=== PATIENT | female | born 1990 | race Caucasian/White ===

== ENCOUNTER → 2020-12-20 06:58 | Outpatient (CLI) | payer BC, SELFPAY ==
[2020-12-20 23:26] LABS: SARS-CoV-2 RNA PCR Negative
== END ==
PROVIDERS: PCP Nurse Practitioner Family; Visit Provider Nurse Practitioner Family
DX: Z20.822 Contact with and (suspected) exposure to COVID-19 (principal); R68.83 Chills (without fever)
CPT/HCPCS: C9803; U0003; U0005

== ENCOUNTER 2022-09-24 10:41 | Outpatient (CLI) | payer BC, SELFPAY ==
[2022-09-24 11:25] LABS: Basophils Absolute Auto 0.1 K/mm3 (0.0-0.1); Basophils Percent Auto 0.6 % (0.2-1.2); Eosinophils Absolute Auto 0.1 K/mm3 (0-0.3); Eosinophils Percent Auto 0.9 % (0-4.4); Hematocrit 46.7 % (37.0-47.0); Hemoglobin 15.9 g/dL (12.0-15.0); Immature Granulocyte Absolute 0.19 K/mm3 (0.00-0.031); Immature Granulocyte Percent A 1.7 % (0-0.5); Lymphocytes Absolute Auto 1.06 K/mm3 (0.9-3.2); Lymphocytes Percent Auto 9.3 % (18.3-44.2); Mean Corpuscular Hemoglobin 31.1 pg (26-34); Mean Corpuscular Volume 91.4 fl (80-100); Mean Platelet Volume 10.4 fl (7.4-10.4); Monocytes Absolute Auto 1.3 K/mm3 (0.1-0.6); Neutrophils Absolute Auto 8.7 K/mm3 (1.3-6.7); Neutrophils Percent Auto 76.5 % (45.5-73.1); Platelet Count Result 243 k/mm3 (150-375); Red Blood Count 5.11 M/mm3 (4.2-5.4); White Blood Count 11.4 K/mm3 (4.5-10.0)
[2022-09-24 12:05] LABS: Erythrocyte Sedimentation Rate 5 mm/hr (0-20)
== END 2022-09-24 10:42 | disposition home or self-care (01) ==
LOC: ANHLAB 10:46
PROVIDERS: PCP Nurse Practitioner Family; Visit Provider Internal Medicine Hematology & Oncology
DX: D72.829 Elevated white blood cell count, unspecified (principal)
CPT/HCPCS: 36415; 85025; 85652; 86140; 88184

== ENCOUNTER 2023-04-07 11:15 | Outpatient (CLI) | payer BC, SELFPAY ==
[2023-04-07 11:30] LABS: Basophils Absolute Auto 0.1 K/mm3 (0.0-0.1); Basophils Percent Auto 0.7 % (0.2-1.2); Eosinophils Absolute Auto 0.4 K/mm3 (0-0.3); Eosinophils Percent Auto 2.7 % (0-4.4); Hematocrit 45.7 % (37.0-47.0); Hemoglobin 15.4 g/dL (12.0-15.0); Immature Granulocyte Absolute 0.14 K/mm3 (0.00-0.031); Lymphocytes Absolute Auto 4.48 K/mm3 (0.9-3.2); Lymphocytes Percent Auto 33.1 % (18.3-44.2); Mean Corpuscular HGB Conc 33.7 g/dl (32-36); Mean Corpuscular Hemoglobin 30.5 pg (26-34); Mean Corpuscular Volume 90.5 fl (80-100); Mean Platelet Volume 10.1 fl (7.4-10.4); Monocytes Absolute Auto 0.9 K/mm3 (0.1-0.6); Monocytes Percent Auto 6.3 % (2.6-8.5); Neutrophils Absolute Auto 7.6 K/mm3 (1.3-6.7); Neutrophils Percent Auto 56.2 % (45.5-73.1); Platelet Count Result 291 k/mm3 (150-375); Red Blood Count 5.05 M/mm3 (4.2-5.4); Red Cell Distribution Width 12.7 % (11.5-14.5); White Blood Count 13.5 K/mm3 (4.5-10.0)
[2023-04-07 15:34] LABS: Erythrocyte Sedimentation Rate 4 mm/hr (0-20)
== END 2023-04-07 11:16 | disposition home or self-care (01) ==
LOC: ANHLAB 11:17
PROVIDERS: PCP Nurse Practitioner Family; Visit Provider Internal Medicine Hematology & Oncology
DX: D72.829 Elevated white blood cell count, unspecified (principal)
CPT/HCPCS: 36415; 85025; 85652

== ENCOUNTER 2023-04-20 13:52 | Outpatient (CLI) | payer BC, SELFPAY ==
[2023-04-20 15:04] LABS: CRP < 0.5 mg/dL (<1.0)
[2023-04-20 15:32] LABS: Erythrocyte Sedimentation Rate 4 mm/hr (0-20)
[2023-04-24 10:40] LABS: BCR/abl Prior Result Not Given
[2023-04-24 11:23] LABS: BCR/abl P190 Not Detected; BCR/abl P210 Not Detected
[2023-04-24 11:24] LABS: BCR/abl P190 Chg YES; BCR/abl P210 Chg YES
== END 2023-04-20 13:53 | disposition home or self-care (01) ==
LOC: ANHLAB 13:55
PROVIDERS: PCP Nurse Practitioner Family; Visit Provider Internal Medicine Hematology & Oncology
DX: D72.829 Elevated white blood cell count, unspecified (principal)
CPT/HCPCS: 36415; 81206; 81207; 85652; 86140

== ENCOUNTER 2025-04-10 11:13 | Emergency (ER) | payer BC, SELFPAY ==
[2025-04-10 11:48] VITALS: BP 113/84; PULSE 65; RESP 16; TEMP 36.4; O2SAT 99
--- NOTE | 2025-04-10 11:55 | ED_ITS ---
HPI - URI/Sore Throat General Chief Complaint: Upper Respiratory Infection Stated Complaint: Sore Throat Source: patient and RN notes reviewed Mode of arrival: ambulatory Limitations: no limitations History of Present Illness HPI Narrative: Patient is a 34-year-old female who presents to the [facility] with complaints of sore throat starting last night. Patient also endorses some mild nasal congestion and an infrequent nonproductive cough. She reports mild intermittent headaches. Denies known fever. Unsure of any known sick contacts. Related Data Home Medications ?Medication ?Instructions ?Recorded ?Confirmed ?Last Taken ?Type atomoxetine 60 mg capsule 60 mg PO ONCE 10/13/24 10/13/24 Unknown History cariprazine 4.5 mg capsule mg 04/10/25 Unknown History (Vraylar) fluoxetine 60 mg tablet mg 04/10/25 Unknown History naltrexone 50 mg tablet mg 04/10/25 Unknown History Allergies Allergy/AdvReac Type Severity Reaction Status Date / Time No Known Allergies Allergy Verified 04/10/25 11:44 Review of Systems Review of Systems: CONSTITUTIONAL: Denies fever, chills, or sweats. EYES: Denies visual changes, redness, or discharge. ENT: Denies otalgia but reports sore throat. CARDIOVASCULAR: Denies chest pain, palpitations, or edema. RESPIRATORY: Denies cough or dyspnea. GASTROINTESTINAL: Denies abdominal pain, nausea, vomiting, or diarrhea. GENITOURINARY: Denies dysuria or hematuria. SKIN: Denies rash or itching. MUSCULOSKELETAL: Denies back pain, joint pain, or myalgia. NEUROLOGIC: Reports headache but denies numbness or weakness. Pertinent positives per HPI. [facility] Past Medical History Medical History Major depression Skin cancer PTSD (post-traumatic stress disorder) Anxiety Surgical History Surgical History No history of previous surgery Family History Family History Father Alcoholism Hypertension Heart disease Mother Depression Grandparent Cancer Social History Social History Social History: 10/13/24 not confident with insurance forms Smoking status: Never smoker Alcohol intake: never Substance use: current Substance use type: marijuana Other substance usage details: yesterday for relaxation Do You Feel Safe in your Home?: Yes Lack of Transportation: No Lack of Food: Sometimes True Current Housing: I Have Housing Concerned About Future Housing: No Difficulty Paying Gas/Electric Bills: No Difficulty Paying for Meds: YES Currently Unemployed: No Education: Master's Degree or Higher Difficulty w/ Childcare or Family Care: No Living arrangements: alone Occupation/Education: occupation Gender identity (if verbalized by the patient): Female Comments At the time of my signature, I reviewed and agree with the nursing past medical, surgical, social, and family history. There is no relevant family history pertinent to the patient complaint. Exam Narrative: GENERAL: This is a well-nourished, well-developed patient, in no apparent distress. HEAD: normocephalic, atraumatic. EYES: Sclera clear/white. Vision is grossly intact. EARS: External ears normal. Hearing grossly intact. NOSE: External nose normal with no obvious nasal discharge, nares without redness, no rhinorrhea. THROAT: Mucous membranes moist, oropharyngeal erythema. NECK: Neck supple, non-tender without lymphadenopathy, masses or thyromegaly. CARDIOVASCULAR: Regular rate and rhythm without murmurs, gallops, or rubs. RESPIRATORY: Clear to auscultation. Breath sounds equal bilaterally. No wheezes, rales, or rhonchi. GASTROINTESTINAL: Abdomen soft, non-tender, nondistended. Bowel sounds are active. No hepato-splenomegaly, or palpable masses. No guarding. SKIN: warm, intact with no suspicious lesions or rash, good texture and turgor. NEURO: awake, alert, and oriented to person, place and time. There were no obvious focal neurologic abnormalities. Course Course Level of Care: Express Care Visit Vital Signs Vital signs: Vital Signs Temperature 97.5 F L 04/10/25 11:48 Pulse Rate 65 04/10/25 11:48 Respiratory Rate 16 04/10/25 11:48 Blood Pressure 113/84 04/10/25 11:48 Pulse Oximetry 99 04/10/25 11:48 Oxygen Delivery Room Air 04/10/25 11:48 Temperature 97.5 F L 04/10/25 11:48 Pulse Rate 65 04/10/25 11:48 Respiratory Rate 16 04/10/25 11:48 Blood Pressure 113/84 04/10/25 11:48 Pulse Oximetry 99 04/10/25 11:48 Oxygen Delivery Room Air 04/10/25 11:48 Reviewed MDM - URI/Sore Throat MDM Narrative Medical decision making narrative: Rapid strep is negative in the office; however we will send to the lab for confirmation; there is a small percentage chance that it can come back positive; if it is, we will call you in 2-3days; and your prescription will be call in to your pharmacy. However, there is NO indication for antibiotic at this time. -Increase your fluids and Vitamin C. -Oral rinses such as: Salt water gargles and/or may use topical anesthetic (eg. Chloraseptic spray) or lozenges to relieve dryness or throat pain. -Take tylenol and ibuprofen as needed for pain and fever as directed. -Frequent hand washing or hand pole truck driver is one of the best ways to prevent spread of infection. -Follow up with primary care provider in 2-3 days if condition is not improving or seek ER visit if your child starts breathing fast/has trouble breathing, is not drinking enough fluids, muffle voice, difficulty opening the mouth or will not wake up or will not interact with you. Differential Diagnosis Differential diagnosis: Likely upper respiratory infection, viral infection, pharyngitis and other (strep) Lab Data Attestation: I reviewed the patient's lab results. Critical Care Time Critical Care Time Critical Care Time: No Discharge Plan Discharge Clinical Impression: Acute viral pharyngitis Patient Disposition: Home Condition: Stable Instructions: Pharyngitis (ED) Additional Instructions: Rapid strep is negative in the office; however we will send to the lab for confirmation; there is a small percentage chance that it can come back positive; if it is, we will call you in 2-3days; and your prescription will be call in to your pharmacy. However, there is NO indication for antibiotic at this time. -Increase your fluids and Vitamin C. -Oral rinses such as: Salt water gargles and/or may use topical anesthetic (eg. Chloraseptic spray) or lozenges to relieve dryness or throat pain. -Take tylenol and ibuprofen as needed for pain and fever as directed. -Frequent hand washing or hand pole truck driver is one of the best ways to prevent spread of infection. -Follow up with primary care provider in 2-3 days if condition is not improving or seek ER visit if your child starts breathing fast/has trouble breathing, is not drinking enough fluids, muffle voice, difficulty opening the mouth or will not wake up or will not interact with you. Patient Language: Comoran Prescriptions: New prednisone 50 mg tablet 50 mg PO DAILY 5 Days Qty: 5 0RF No Action naltrexone 50 mg tablet fluoxetine 60 mg tablet Vraylar 4.5 mg capsule hydroxyzine HCl 10 mg tablet 10 mg PO TID MDD 3 tab PRN (Reason: panic) Qty: 90 2RF atomoxetine 60 mg capsule 60 mg PO ONCE fluoxetine 20 mg capsule 20 mg PO TID Qty: 270 1RF Vraylar 3 mg capsule 3 mg PO DAILY Qty: 90 1RF Rx Instructions: diagnosis F33.1 Follow-up/Referrals: Cece Barcenas APRN [Primary Care Provider] - Time of Disposition: 12:09
[2025-04-10 12:06] LABS: EDSTREPNEGPOS1 Negative (Negative)
== END 2025-04-10 12:12 | disposition home or self-care (01) ==
PROVIDERS: Emergency Provider Nurse Practitioner; PCP Nurse Practitioner Family
DX: J02.8 Acute pharyngitis due to other specified organisms (principal); F12.90 Cannabis use, unspecified, uncomplicated; F32.9 Major depressive disorder, single episode, unspecified; F41.9 Anxiety disorder, unspecified; Z85.828 Personal history of other malignant neoplasm of skin
CPT/HCPCS: 87081; 87880; 99213; G0463

== ENCOUNTER 2025-07-11 17:39 | Emergency (ER) | payer BC, SELFPAY ==
[2025-07-11 17:46] VITALS: BP 125/91; PULSE 67; RESP 16; TEMP 36.6; O2SAT 100
[2025-07-11 18:13] LABS: EDSTREPNEGPOS1 Negative (Negative)
--- NOTE | 2025-07-11 18:13 | ED_ITS ---
HPI - General Adult General Chief complaint: Upper Respiratory Infection Stated complaint: Sore Throat Source: patient Mode of arrival: ambulatory Limitations: no limitations History of Present Illness HPI narrative: Patient presents for evaluation of sore throat and right-sided otalgia. Symptom onset this morning. She has a history of strep in this feels similar. She states in the past her rapid strep test is negative but her throat culture grows out strep. No fever, chills, cough, shortness of breath, nausea, vomiting, diarrhea. No recent sick contacts to her knowledge. She does not smoke. Severity: moderate Related Data Home Medications ?Medication ?Instructions ?Recorded ?Confirmed ?Last Taken ?Type atomoxetine 60 mg capsule 60 mg PO ONCE 10/13/2410/13 Unknown History cariprazine 4.5 mg capsule mg 04/10/25 Unknown Histor y (Vraylar) fluoxetine 60 mg tablet mg 04/10/25 Unknown History naltrexone 50 mg tablet mg 04/10/25 Unknown History Allergies Allergy/AdvReac Type Severity Reaction Status Date / Time No Known Allergies Allergy Verified 07/11/25 18:02 Review of Systems Review of Systems: CONSTITUTIONAL: Denies fever, chills, or sweats. EYES: Denies visual changes, redness, or discharge. ENT: Reports sore throat and right-sided otalgia CARDIOVASCULAR: Denies chest pain, palpitations, or edema. RESPIRATORY: Denies cough or dyspnea. GASTROINTESTINAL: Denies abdominal pain, nausea, vomiting, or diarrhea. GENITOURINARY: Denies dysuria or hematuria. SKIN: Denies rash or itching. MUSCULOSKELETAL: Denies back pain, joint pain, or myalgia. NEUROLOGIC: Denies headache, numbness, dizziness, or weakness. PSYCHIATRIC: Denies anxiety or depression. [facility] Past Medical History Medical History Major depression Skin cancer PTSD (post-traumatic stress disorder) Anxiety Surgical History Surgical History No history of previous surgery Family History Family History Father Alcoholism Hypertension Heart disease Mother Depression Grandparent Cancer Social History Social History Social History: 10/13/24 not confident with insurance forms Smoking status: Never smoker Alcohol intake: never Substance use: current Substance use type: marijuana Other substance usage details: yesterday for relaxation Do You Feel Safe in your Home?: Yes Lack of Transportation: No Lack of Food: Sometimes True Current Housing: I Have Housing Concerned About Future Housing: No Difficulty Paying Gas/Electric Bills: No Difficulty Paying for Meds: YES Currently Unemployed: No Education: Master's Degree or Higher Difficulty w/ Childcare or Family Care: No Living arrangements: alone Occupation/Education: occupation Gender identity (if verbalized by the patient): Female Exam Narrative: GENERAL: Well-appearing, well-nourished, and in no acute distress. HEAD: Normocephalic, atraumatic. EYES: PERRLA and EOMI. ENT: Nares clear, no rhinorrhea or epistaxis. Mucous membranes moist. Oropharynx without tonsillar hypertrophy exudate or other lesions. There is some posterior pharyngeal erythema. Bilateral TMs pearly massey nonbulging NECK: Supple. No adenopathy or masses. No carotid bruits or JVD CHEST: Clear to auscultation. No respiratory distress. No wheezes rales or rhonchi HEART: Regular rate and rhythm. No murmur heard. Normal peripheral pulses. ABDOMEN: Soft, nontender, nondistended, normal active bowel sounds. EXTREMITIES: Normal range of motion. No edema. SKIN: Warm, dry, no rash. NEURO: No focal deficits. Alert and oriented x3. PSYCH: Normal mood and affect. Course Course Emergency Course: This is a 35-year-old female who presented for evaluation of sore throat and right-sided otalgia. Rapid strep negative. Will send throat culture. She indicates she had similar symptoms in the past with strep and has recurrent infections. Will discharge with Augmentin. Follow-up with primary provider. Go to the ER for worsening symptoms. Patient in agreement with plan of care. Level of Care: Express Care Visit Vital Signs Vital signs: Vital Signs Temperature 36.6 C 07/11/25 17:46 Pulse Rate 67 07/11/25 17:46 Respiratory Rate 16 07/11/25 17:46 Blood Pressure 125/91 H 07/11/25 17:46 Pulse Oximetry 100 07/11/25 17:46 Temperature 36.6 C 07/11/25 17:46 Pulse Rate 67 07/11/25 17:46 Respiratory Rate 16 07/11/25 17:46 Blood Pressure 125/91 H 07/11/25 17:46 Pulse Oximetry 100 07/11/25 17:46 Medical Decision Making Vital Signs Vital Signs: Vital Signs Temperature 36.6 C 07/11/25 17:46 Pulse Rate 67 07/11/25 17:46 Respiratory Rate 16 07/11/25 17:46 Blood Pressure 125/91 H 07/11/25 17:46 Pulse Oximetry 100 07/11/25 17:46 Temperature 36.6 C 07/11/25 17:46 Pulse Rate 67 07/11/25 17:46 Respiratory Rate 16 07/11/25 17:46 Blood Pressure 125/91 H 07/11/25 17:46 Pulse Oximetry 100 07/11/25 17:46 Lab Data Labs: Lab Results 07/11/25 Range/Units 18:11 POC Grp A Strep Screen Negative (Negative) Discharge Plan Discharge Clinical Impression: Pharyngitis Patient Disposition: Home Condition: Stable Instructions: Antibiotic Form, Pharyngitis (ED) Patient Language: Cambodian Prescriptions: New amoxicillin-pot clavulanate 875-125 mg tablet 1 tablet PO Q12H Qty: 20 0RF No Action naltrexone 50 mg tablet fluoxetine 60 mg tablet Vraylar 4.5 mg capsule prednisone 50 mg tablet 50 mg PO DAILY 5 Days Qty: 5 0RF hydroxyzine HCl 10 mg tablet 10 mg PO TID MDD 3 tab PRN (Reason: panic) Qty: 90 2RF atomoxetine 60 mg capsule 60 mg PO ONCE fluoxetine 20 mg capsule 20 mg PO TID Qty: 270 1RF Vraylar 3 mg capsule 3 mg PO DAILY Qty: 90 1RF Rx Instructions: diagnosis F33.1 Follow-up/Referrals: Ludwig Khan MD [Physician, Family Practice] Time of Disposition: 18:11
== END 2025-07-11 18:17 | disposition home or self-care (01) ==
PROVIDERS: Emergency Provider Nurse Practitioner
DX: J02.9 Acute pharyngitis, unspecified (principal); F12.90 Cannabis use, unspecified, uncomplicated; F32.9 Major depressive disorder, single episode, unspecified; F41.9 Anxiety disorder, unspecified; Z85.828 Personal history of other malignant neoplasm of skin
CPT/HCPCS: 87081; 87880; 99213; G0463

== ENCOUNTER 2025-07-24 09:53 | Emergency (ER) | payer BC, SELFPAY ==
--- NOTE | 2025-07-24 10:03 | ED.NAVMDI ---
HPI - Nausea/Vomiting/Diarrhea General Chief complaint: Dental/Oral Stated complaint: mouth infection, throwing up Source: patient and RN notes reviewed Mode of arrival: ambulatory Limitations: no limitations History of Present Illness HPI Narrative: Patient is a 35-year-old female who presents to the [facility] with complaints of left upper dental pain. She states that this has been ongoing for quite some time. She has seen her dentist who started her on cephalexin and Flagyl for a dental infection. She states that the dentist will not extract the tooth until the infection is gone. She denies trouble swallowing or trismus. Denies fever. Related Data Home Medications ?Medication ?Instructions ?Recorded ?Confirmed ?Last Taken ?Type fluoxetine 60 mg tablet 60 mg PO QPM 04/10/25 07/24/25 Unknown History naltrexone 50 mg tablet 50 mg PO DAILY 04/10/25 07/24/25 Unknown History cariprazine 3 mg capsule (Vraylar) 6 mg PO DAILY 07/24/25 07/24/25 Unknown History Allergies Allergy/AdvReac Type Severity Reaction Status Date / Time No Known Allergies Allergy Verified 07/24/25 10:08 Review of Systems Review of Systems: CONSTITUTIONAL: Denies fever, chills, or sweats. EYES: Denies visual changes, redness, or discharge. ENT: Denies otalgia and sore throat. Reports denital pain. CARDIOVASCULAR: Denies chest pain, palpitations, or edema. RESPIRATORY: Denies cough or dyspnea. GASTROINTESTINAL: Denies abdominal pain, nausea, vomiting, or diarrhea. GENITOURINARY: Denies dysuria or hematuria. SKIN: Denies rash or itching. MUSCULOSKELETAL: Denies back pain, joint pain, or myalgia. NEUROLOGIC: Denies headache, numbness, or weakness. Pertinent positives per HPI. [facility] Past Medical History Medical History Major depression Skin cancer PTSD (post-traumatic stress disorder) Anxiety Surgical History Surgical History No history of previous surgery Family History Family History Father Alcoholism Hypertension Heart disease Mother Depression Grandparent Cancer Social History Social History Social History: 10/13/24 not confident with insurance forms Smoking status: Never smoker Alcohol intake: never Substance use: current Substance use type: marijuana Other substance usage details: yesterday for relaxation Do You Feel Safe in your Home?: Yes Lack of Transportation: No Lack of Food: Sometimes True Current Housing: I Have Housing Concerned About Future Housing: No Difficulty Paying Gas/Electric Bills: No Difficulty Paying for Meds: YES Currently Unemployed: No Education: Master's Degree or Higher Difficulty w/ Childcare or Family Care: No Living arrangements: alone Occupation/Education: occupation Gender identity (if verbalized by the patient): Female Comments At the time of my signature, I reviewed and agree with the nursing past medical, surgical, social, and family history. There is no relevant family history pertinent to the patient complaint. Exam Narrative: GENERAL: This is a well-nourished, well-developed patient, in no apparent distress. HEAD: normocephalic, atraumatic. EYES: Sclera clear/white. Vision is grossly intact. EARS: External ears normal. Hearing grossly intact. NOSE: External nose normal with no obvious nasal discharge, nares without redness, no rhinorrhea. THROAT: Mucous membranes moist, posterior pharynx clear. MOUTH: Dental tenderness present. Gingival swelling and erythema. No notable abscess. NECK: Neck supple, non-tender without lymphadenopathy, masses or thyromegaly. CARDIOVASCULAR: Regular rate and rhythm without murmurs, gallops, or rubs. RESPIRATORY: Clear to auscultation. Breath sounds equal bilaterally. No wheezes, rales, or rhonchi. GASTROINTESTINAL: Abdomen soft, non-tender, nondistended. Bowel sounds are active. No hepato-splenomegaly, or palpable masses. No guarding. SKIN: warm, intact with no suspicious lesions or rash, good texture and turgor. NEURO: awake, alert, and oriented to person, place and time. There were no obvious focal neurologic abnormalities. Course Course Level of Care: Express Care Visit Vital Signs Vital signs: Vital Signs Temperature 97.5 F L 07/24/25 10:13 Pulse Rate 70 07/24/25 10:13 Respiratory Rate 16 07/24/25 10:13 Blood Pressure 146/106 H 07/24/25 10:13 Pulse Oximetry 100 07/24/25 10:13 Temperature 97.5 F L 07/24/25 10:13 Pulse Rate 70 07/24/25 10:13 Respiratory Rate 16 07/24/25 10:13 Blood Pressure 146/106 H 07/24/25 10:13 Pulse Oximetry 100 07/24/25 10:13 Reviewed MDM - Nausea/Vomiting/Diarrhea MDM Narrative Medical decision making narrative: Take antibiotic until it's gone. Brushing teeth at least twice daily with gentle flossing. Avoid temperature extremes when you eat. Salt gargle to rinse your mouth after every meal You may apply ice to the face to reduce pain/swelling. For pain, you may take: Tylenol 650-1000mg by mouth every 4-6 hours. Do not exceed 4000mg in 24 hours. Advil (Ibuprofen) 600 mg by mouth every 6 hours. Do not exceed 2400mg in 24 hours. Also, recommend regular dental check up one-two times a year to prevent tooth decay and other periodontal disease. Follow-up with the dentist as soon as possible. See the list provided Differential Diagnosis Differential diagnosis: Likely gastroenteritis, dehydration and other (dental infection) Critical Care Time Critical Care Time Critical Care Time: No Discharge Plan Discharge Clinical Impression: Dental infection Patient Disposition: Home Condition: Stable Instructions: Antibiotic Form, Dental Abscess (ED), Toothache (ED) Additional Instructions: Take antibiotic until it's gone. Brushing teeth at least twice daily with gentle flossing. Avoid temperature extremes when you eat. Salt gargle to rinse your mouth after every meal You may apply ice to the face to reduce pain/swelling. For pain, you may take: Tylenol 650-1000mg by mouth every 4-6 hours. Do not exceed 4000mg in 24 hours. Advil (Ibuprofen) 600 mg by mouth every 6 hours. Do not exceed 2400mg in 24 hours. Also, recommend regular dental check up one-two times a year to prevent tooth decay and other periodontal disease. Follow-up with the dentist as soon as possible. See the list provided Patient Language: Wallisian Prescriptions: New clindamycin HCl [Cleocin HCl] 300 mg capsule 300 mg PO Q6H 10 Days Qty: 40 0RF ketorolac 10 mg tablet 10 mg PO Q8H PRN (Reason: pain) Qty: 20 0RF Rx Instructions: maximum total duration of 5 days from all oral, intranasal, or parenteral formulations No Action naltrexone 50 mg tablet 50 mg PO DAILY fluoxetine 60 mg tablet 60 mg PO QPM Vraylar 3 mg capsule 6 mg PO DAILY Rx Instructions: diagnosis F33.1 hydroxyzine HCl 10 mg tablet 10 mg PO TID MDD 3 tab PRN (Reason: panic) Qty: 90 2RF fluoxetine 20 mg capsule 20 mg PO TID Qty: 270 1RF Follow-up/Referrals: Cece Barcenas APRN [Primary Care Provider, Family Practice] Stand Alone Forms: Work/School Release IP Time of Disposition: 10:25
[2025-07-24 10:13] VITALS: BP 146/106; PULSE 70; RESP 16; TEMP 36.4; O2SAT 100
[2025-07-24] MEDS: KETOROLAC (*BKC) 60 MG/2 ML VIAL IM (10:27)
== END 2025-07-24 10:43 | disposition home or self-care (01) ==
PROVIDERS: Emergency Provider Nurse Practitioner; PCP Nurse Practitioner Family
DX: K04.7 Periapical abscess without sinus (principal); F12.90 Cannabis use, unspecified, uncomplicated; F32.9 Major depressive disorder, single episode, unspecified; F41.9 Anxiety disorder, unspecified; Z85.828 Personal history of other malignant neoplasm of skin
CPT/HCPCS: 96372; 99213; G0463; J1885